=== PATIENT | male | born 1995 | race Caucasian/White ===

== ENCOUNTER 2017-02-02 16:56 | Emergency (ER) | payer OTHER ==
[~2017-02-02] VITALS: Ht 177.8 cm; Wt 75.2 kg
[2017-02-02 17:01] VITALS: TEMP 37; Ht 177.8 cm; Wt 75.2 kg
--- NOTE | 2017-02-02 18:24 | EMERGENCY ROOM VISIT NOTE ---
History First contact with patient: 17:59 Chief Complaint: RESPIRATORY PROBLEMS Stated Complaint: CHRONIC BRONCHITIS Nursing Triage Summary: "I've been having horrible bronchitis for 2-3 months, i've been to multiple doctors and don't feel any better. I have tried many medications. My doctor told me that I need to just come to the hospital." Symptoms include coughing, chest pain, throat pain, congestion, and I can't sleep because I am coughing so much. History of Present Illness The patient is a 21 year old male who presents to the Emergency Room with complaints of a chronic cough that has been going on for 2-3 months. The cough is nonproductive. He also describes chest pain particularly when he is coughing. He denies any shortness of breath. No fever or chills. He is also complaining of throat pain from coughing. The patient has seen numerous doctors. He has been told that he has chronic bronchitis. He is been given a few cough syrups that have helped. He has been seen at [facility] urgent care. He is a student. He denies any new environmental factors. Review of Systems 10 system review performed and negative unless noted in HPI or below Past Medical/Surgical History Otherwise healthy Family History No reported family history Social History Smoking Status: Never Smoker Housing Status: lives with family Occupation Status: [employer] student Current/Historical Medications Scheduled Albuterol Hfa (Ventolin Hfa), 2 PUFFS INH QID Scheduled PRN Hydrocodone W/ Homatropine (Hycodan 5/1.5MG 5 Ml), 5-10 ML PO Q4H PRN for Cough Physical Exam Vital Signs Date Time Temp Pulse Resp B/P (MAP) Pulse Ox O2 Delivery O2 Flow Rate FiO2 02/02/17 19:25 64 16 126/62 97 Room Air 02/02/17 17:01 97 Room Air 02/02/17 17:01 37.0 111 18 145/75 99 Room Air Physical Exam VITALS: Vitals are noted on the nurse's note and reviewed by myself. Vital signs stable. GENERAL: 21-year-old male, in no acute distress, nondiaphoretic, well-developed well-nourished. SKIN: The skin was without rashes, erythema, edema, or bruising. HEAD: Normocephalic atraumatic. MOUTH: Mucous membranes moist. Tonsils are not enlarged. Pharynx without erythema or exudate. Uvula midline. Airway patent. Tongue does not deviate. NECK: Supple without nuchal rigidity. No lymphadenopathy. Cervical spine is nontender. No JVD. HEART: Regular rate and rhythm without murmurs gallops or rubs. LUNGS: Clear to auscultation bilaterally without wheezes, rales or rhonchi. No accessory muscle use. MUSCULOSKELETAL: No muscle atrophy, erythema, or edema noted. Strength 5/5 throughout. NEURO: Patient was alert and oriented to person place and time. Normal sensation to touch. No focal neurological deficits. Medical Decision & Procedures ER Provider Diagnostic Interpretation: CT chest IMPRESSION: 1. Mild bronchial wall thickening could suggest bronchitis/bronchiolitis. No focal infiltrate to suggest pneumonia. Laboratory Results 02/02/17 18:20 Red Blood Count 5.19, Mean Corpuscular Volume 85.5, Mean Corpuscular Hemoglobin 30.6, Mean Corpuscular Hemoglobin Concent 35.8, Mean Platelet Volume 9.6, Neutrophils (%) (Auto) 52.2, Lymphocytes (%) (Auto) 40.5, Monocytes (%) (Auto) 6.0, Eosinophils (%) (Auto) 0.9, Basophils (%) (Auto) 0.2, Neutrophils # (Auto) 2.97, Lymphocytes # (Auto) 2.30, Monocytes # (Auto) 0.34, Eosinophils # (Auto) 0.05, Basophils # (Auto) 0.01 02/02/17 18:20 Test 02/02/17 18:20 White Blood Count 5.68 K/uL (4.8-10.8) Red Blood Count 5.19 M/uL (4.7-6.1) Hemoglobin 15.9 g/dL (14.0-18.0) Hematocrit 44.4 % (42-52) Mean Corpuscular Volume 85.5 fL (80-100) Mean Corpuscular Hemoglobin 30.6 pg (25-34) Mean Corpuscular Hemoglobin Concent 35.8 g/dl (32-36) Platelet Count 241 K/uL (130-400) Mean Platelet Volume 9.6 fL (7.4-10.4) Neutrophils (%) (Auto) 52.2 % Lymphocytes (%) (Auto) 40.5 % Monocytes (%) (Auto) 6.0 % Eosinophils (%) (Auto) 0.9 % Basophils (%) (Auto) 0.2 % Neutrophils # (Auto) 2.97 K/uL (1.4-6.5) Lymphocytes # (Auto) 2.30 K/uL (1.2-3.4) Monocytes # (Auto) 0.34 K/uL (0.11-0.59) Eosinophils # (Auto) 0.05 K/uL (0-0.5) Basophils # (Auto) 0.01 K/uL (0-0.2) RDW Standard Deviation 41.8 fL (36.4-46.3) RDW Coefficient of Variation 13.4 % (11.5-14.5) Immature Granulocyte % (Auto) 0.2 % Immature Granulocyte # (Auto) 0.01 K/uL (0.00-0.02) Anion Gap 7.0 mmol/L (3-11) Est Creatinine Clear Calc Drug Dose 128.4 ml/min Estimated GFR () 133.8 Estimated GFR (Non- 115.4 BUN/Creatinine Ratio 9.7 (10-20) Calcium Level 8.6 mg/dl (8.5-10.1) Troponin I < 0.015 ng/ml (0-0.045) ECG Indication: chest pain Rate (beats per minute): 76 Rhythm: normal sinus ED Course Patient was seen and examined Vital signs including blood pressure were reviewed medications list was verified with patient Labs were obtained, and a saline lock was established An EKG was reviewed. The patient was put on a monitor. Imaging was performed and reviewed Upon reevaluation, the patient was resting comfortably. We discussed the results of his workup. He voiced understanding. I reviewed discharge instructions the patient. They voiced understanding and had no further questions. Medical Decision Differential diagnosis: Bronchitis, pneumonia, strep pharyngitis, viral pharyngitis, influenza , allergic reaction This patient is a 21-year-old male presents emergency department complaining of a chronic cough and chest pain for 2-3 months. Given the fact that this has been going on for months, I had a low suspicion that this was cardiac related. The patient's EKG shows normal sinus rhythm without any signs of ischemia. His labs are unremarkable. There is no leukocytosis. His vital signs are stable. There is no hypoxia. The patient reports having multiple chest x-rays; therefore, I opted to do a CT of the chest. This was consistent with possible bronchitis/bronchiolitis. The patient was given an albuterol inhaler. He was also given a cough medication. He was instructed to follow-up with a couture dressmaker if his per symptoms persist. He seems happy and comfortable with this plan. This chart was completed in part utilizing [employer] Speech Voice Recognition software. Attempts were made to minimize the grammatical errors, random word insertions, pronoun errors and incomplete sentences. Any formal questions or concerns about the content, text or information contained within the body of this dictation should be directly addressed to the provider for clarification. Medication Reconcilliation Current Medication List: was personally reviewed by me Impression Primary Impression: Chronic bronchitis Departure Information Dispostion Discharge/Transfer to [facility] Condition GOOD Prescriptions Albuterol Hfa (VENTOLIN HFA) 200 Puffs/87093 Mcg Aers 2 PUFFS INH QID, #1 INHALER Prov: Genna Deleon PA-C 02/02/17 Hydrocodone W/ Homatropine (HYCODAN 5/1.5MG 5 ML) 1 Syp Syp 5-10 ML PO Q4H Y for Cough, #200 ML Prov: Genna Deleon PA-C 02/02/17 Referrals No Doctor, Assigned (PCP) Reyes Munoz, DO Patient Instructions Bronchitis Chronic, My [facility] Additional Instructions You were evaluated in the emergency department for a chronic cough and chest pain. A CAT scan shows signs of chronic bronchitis. Please take Hycodan 5 mL's every 4 hours as needed for cough. Do not drink alcohol or drug well taking this medication. It is sedating. If the cough persists, you may need to see a specialist. A number for Dr. Munoz , a couture dressmaker, has been provided. Return to the emergency department if you have any of the following symptoms: -Fever -Shortness of breath -severe chest pain
[2017-02-02 18:50] LABS: BLOOD UREA NITROGEN 9 mg/dl (7-18); BUN/CREATININE RATIO 9.7 (10-20); CALCIUM 8.6 mg/dl (8.5-10.1); CARBON DIOXIDE 27 mmol/L (21-32); CHLORIDE 105 mmol/L (98-107); CREATININE 0.94 mg/dl (0.60-1.40); GLUCOSE 93 mg/dl (70-99); POTASSIUM 3.5 mmol/L (3.5-5.1); SODIUM 139 mmol/L (136-145)
[2017-02-02 18:51] LABS: BASO % 0.2 %; BASO ABS # 0.01 K/uL (0-0.2); COMPLETE YES; EOS % 0.9 %; HEMATOCRIT 44.4 % (42-52); IG% 0.2 %; LYMPH % 40.5 %; MEAN CELL VOLUME 85.5 fL (80-100); MEAN CORPUSCULAR HEMOGLOBIN 30.6 pg (25-34); MEAN CORPUSCULAR HGB CONC 35.8 g/dl (32-36); MEAN PLATELET VOLUME 9.6 fL (7.4-10.4); NEUT % 52.2 %; PLATELET COUNT 241 K/uL (130-400); RED BLOOD COUNT 5.19 M/uL (4.7-6.1); WHITE BLOOD COUNT 5.68 K/uL (4.8-10.8)
--- NOTE | 2017-02-02 18:59 | DIAGNOSTIC IMAGING REPORT ---
(CHEST) THORAX WITHOUT CLINICAL HISTORY: 21 years-old Male presenting with chronic cough, CP. TECHNIQUE: Multidetector CT imaging of the chest was performed without the use of intravenous contrast. IV contrast: None. A dose lowering technique was used consistent with the principles of ALARA (as low as reasonably achievable). COMPARISON: None. CT DOSE (mGy.cm): The estimated cumulative dose is 248.42 mGy.cm. 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 On soft tissue windows, normal thyroid and thoracic inlet. No axillary, supraclavicular, or mediastinal lymphadenopathy. Evaluation of the claudia limited without intravenous contrast. Normal aorta. Normal heart size. No pericardial or pleural effusion. Upper abdomen normal. On lung windows, no focal infiltrate or nodule. Mild bronchial wall thickening noted diffusely. On bone windows, normal osseous structures. IMPRESSION: 1. Mild bronchial wall thickening could suggest bronchitis/bronchiolitis. No focal infiltrate to suggest pneumonia. Electronically signed by: Anirudh Concepcion M.D. 02/02/2017 6:58 PM Dictated Date/Time: 02/02/2017 6:55 PM
[2017-02-02 19:25] VITALS: BP 126/62; PULSE 64; O2SAT 97
[2017-02-02] MEDS ORDERED: HYDR5SYP11 PO (19:31)
[2017-02-02] MEDS ORDERED: VNTHFA/IN INH (19:42)
== END 2017-02-02 19:49 | disposition home or self-care (01) ==
LOC: C.EDB 16:59 → C.EDD 19:49
DX: J42 Unspecified chronic bronchitis (principal)

== ENCOUNTER 2017-04-07 21:33 | Emergency (ER) | payer OTHER ==
[~2017-04-07] VITALS: Ht 177.8 cm; Wt 75.5 kg
[~2017-04-07 21:33] MED LIST: VNTHFA/IN INH
[2017-04-07 21:35] VITALS: TEMP 37; Ht 177.8 cm; Wt 75.5 kg
[2017-04-07] MEDS ORDERED: KETOROLAC TROMETHAMINE 30 MG/ML VIAL IV STA (21:41)
[2017-04-07] MEDS ORDERED: ALBUT/IPRATROP 3MG/0.5MG NEB 3 ML VIAL INH STA (21:41)
[2017-04-07 22:05] VITALS: O2SAT 97
[2017-04-07 22:16] LABS: BASO % 0.2 %; BASO ABS # 0.01 K/uL (0-0.2); COMPLETE YES; HEMATOCRIT 46.3 % (42-52); IG% 0.2 %; LYMPH ABS # 1.37 K/uL (1.2-3.4); MEAN CELL VOLUME 86.1 fL (80-100); MEAN CORPUSCULAR HEMOGLOBIN 31.4 pg (25-34); MEAN CORPUSCULAR HGB CONC 36.5 g/dl (32-36); MEAN PLATELET VOLUME 9.4 fL (7.4-10.4); MONO % 11.4 %; NEUT % 66.2 %; PLATELET COUNT 226 K/uL (130-400); RED BLOOD COUNT 5.38 M/uL (4.7-6.1); WHITE BLOOD COUNT 6.22 K/uL (4.8-10.8)
--- NOTE | 2017-04-07 22:16 | DIAGNOSTIC IMAGING REPORT ---
SINGLE VIEW CHEST CLINICAL HISTORY: Atypical chest pain. FINDINGS: An AP, portable, upright chest radiograph is correlated with chest CT dated 02/02/2017. The cardiomediastinal silhouette is unremarkable. The lungs and pleural spaces are clear. No pneumothorax is seen. The bony thorax is grossly intact. IMPRESSION: No acute cardiopulmonary abnormality. Electronically signed by: Juma Rivera M.D. 04/07/2017 10:15 PM Dictated Date/Time: 04/07/2017 10:14 PM
[2017-04-07 22:19] LABS: POINT OF CARE TROPONIN I < 0.030 ng/ml (0-0.045)
[2017-04-07 22:31] LABS: BUN/CREATININE RATIO 9.5 (10-20); CALCIUM 9.5 mg/dl (8.5-10.1); CREATININE 0.88 mg/dl (0.60-1.40); POTASSIUM 3.2 mmol/L (3.5-5.1)
[2017-04-07] MEDS ORDERED: POTASSIUM CHLORIDE 10 MEQ TABCR PO STA (22:37)
--- NOTE | 2017-04-07 22:46 | EMERGENCY ROOM VISIT NOTE ---
History First contact with patient: 21:39 Chief Complaint: RESPIRATORY PROBLEMS Stated Complaint: COLLAPSED LUNG R KIDNEY STONES Nursing Triage Summary: Patient states he was walking home lsat night in the cold when he developoed right sided rib/lung pain. The pain increases upon deep inspiration and now has spread across to areas of both lungs. Patient was treated here previously for a cough and the symptoms have not completely resolved. History of Present Illness The patient is a 21 year old male who presents to the Emergency Room with complaints of right-sided chest pain or source of breath for the past day that started while walking home. Pain currently 5 out of 10 worse with breathing and better with rest. It does not radiate. Patient has had a chronic cough. He does not smoke. He has traveled recently. No family history of heart disease or blood clots. Patient denies fever, chills, productive cough, abdominal pain, back pain, leg pain or swelling. No injury to the area. No prior history of heart disease or blood clots. No IV drug abuse. Review of Systems See HPI for pertinent positives & negatives. A total of 10 systems reviewed and were otherwise negative. Past Medical/Surgical History none Social History Smoking Status: Former Smoker Drug Use: none Housing Status: lives with family Occupation Status: [employer] student Current/Historical Medications Scheduled Albuterol Hfa (Ventolin Hfa), 2 PUFFS INH QID Physical Exam Vital Signs Date Time Temp Pulse Resp B/P (MAP) Pulse Ox O2 Delivery O2 Flow Rate FiO2 04/07/17 22:08 88 04/07/17 22:05 97 Room Air 04/07/17 22:05 97 Room Air 04/07/17 21:41 97 Room Air 04/07/17 21:35 37.0 87 16 135/72 96 Room Air Physical Exam VITALS: Vitals are noted on the nurse's note and reviewed by myself. Vital signs stable. GENERAL: Pleasant male, in no acute distress, nondiaphoretic, well-developed well-nourished. SKIN: The skin was without rashes, erythema, edema, or bruising. There is no tenting of the skin. Capillary reflex less than 2 seconds. HEAD: Normocephalic atraumatic. EARS: External auditory canals clear, tympanic membranes pearly king without erythema or effusion bilaterally. EYES: Pupils equal round and reactive to light and accommodation. Conjunctivae without injection, sclerae without icterus. Extraocular movements intact. NOSE: Patent, turbinates without inflammation or discharge. MOUTH: Mucous membranes moist. Pharynx without erythema or exudate. Uvula midline. Airway patent. Tongue does not deviate. NECK: Supple without nuchal rigidity. No lymphadenopathy. No thyromegaly. Cervical spine is nontender. No JVD. HEART: Regular rate and rhythm without murmurs gallops or rubs. Chest nontender to palpation LUNGS: Clear to auscultation bilaterally without wheezes, rales or rhonchi. No dullness to percussion. No retractions or accessory muscle use. ABDOMEN: Positive bowel sounds x 4. Normal tympanic percussion. Soft, nontender, without masses or organomegaly. Hernandez sign negative. No guarding or rebound tenderness. MUSCULOSKELETAL: No muscle atrophy, erythema, or edema noted. NEURO: Patient was alert and oriented to person place and time. Normal sensation to light and sharp touch. No focal neurological deficits. Medical Decision & Procedures Laboratory Results 04/07/17 21:55 Red Blood Count 5.38, Mean Corpuscular Volume 86.1, Mean Corpuscular Hemoglobin 31.4, Mean Corpuscular Hemoglobin Concent 36.5, Mean Platelet Volume 9.4, Neutrophils (%) (Auto) 66.2, Lymphocytes (%) (Auto) 22.0, Monocytes (%) (Auto) 11.4, Eosinophils (%) (Auto) 0.0, Basophils (%) (Auto) 0.2, Neutrophils # (Auto ) 4.12, Lymphocytes # (Auto) 1.37, Monocytes # (Auto) 0.71, Eosinophils # (Auto ) 0.00, Basophils # (Auto) 0.01 04/07/17 21:55 Test 04/07/17 21:55 04/07/17 21:59 White Blood Count 6.22 K/uL (4.8-10.8) Red Blood Count 5.38 M/uL (4.7-6.1) Hemoglobin 16.9 g/dL (14.0-18.0) Hematocrit 46.3 % (42-52) Mean Corpuscular Volume 86.1 fL (80-100) Mean Corpuscular Hemoglobin 31.4 pg (25-34) Mean Corpuscular Hemoglobin Concent 36.5 g/dl (32-36) Platelet Count 226 K/uL (130-400) Mean Platelet Volume 9.4 fL (7.4-10.4) Neutrophils (%) (Auto) 66.2 % Lymphocytes (%) (Auto) 22.0 % Monocytes (%) (Auto) 11.4 % Eosinophils (%) (Auto) 0.0 % Basophils (%) (Auto) 0.2 % Neutrophils # (Auto) 4.12 K/uL (1.4-6.5) Lymphocytes # (Auto) 1.37 K/uL (1.2-3.4) Monocytes # (Auto) 0.71 K/uL (0.11-0.59) Eosinophils # (Auto) 0.00 K/uL (0-0.5) Basophils # (Auto) 0.01 K/uL (0-0.2) RDW Standard Deviation 41.0 fL (36.4-46.3) RDW Coefficient of Variation 13.0 % (11.5-14.5) Immature Granulocyte % (Auto) 0.2 % Immature Granulocyte # (Auto) 0.01 K/uL (0.00-0.02) Anion Gap 9.0 mmol/L (3-11) Est Creatinine Clear Calc Drug Dose 137.1 ml/min Estimated GFR () 142.3 Estimated GFR (Non- 122.8 BUN/Creatinine Ratio 9.5 (10-20) Calcium Level 9.5 mg/dl (8.5-10.1) Total Bilirubin 0.6 mg/dl (0.2-1) Direct Bilirubin 0.1 mg/dl (0-0.2) Aspartate Amino Transf (AST/SGOT) 12 U/L (15-37) Alanine Aminotransferase (ALT/SGPT) 19 U/L (12-78) Alkaline Phosphatase 83 U/L (45-117) Total Protein 9.2 gm/dl (6.4-8.2) Albumin 4.8 gm/dl (3.4-5.0) Lipase 207 U/L (73-393) Bedside D-Dimer 93 ng/mlFEU (0-450) Bedside Troponin I < 0.030 ng/ml (0-0.045) Medications Administered Medications (Trade) Dose Ordered Sig/Kayleigh Route Start Time Stop Time Status Last Admin Dose Admin Ketorolac Tromethamine (Toradol Inj) 30 mg NOW STAT IV 04/07/17 21:41 04/07/17 21:46 DC 04/07/17 21:55 30 MG Albuterol/ Ipratropium (Duoneb) 3 ml NOW STAT INH 04/07/17 21:41 04/07/17 21:46 DC 04/07/17 21:55 3 ML ED Course Prior records/ancillary studies reviewed. Triage Nursing notes reviewed. The patient's history was concerning for chest pain. Differential diagnosis: Etiologies such as cardiac ischemia, aortic dissection, pulmonary embolism, pneumonia, pneumothorax, musculoskeletal, infections, pericarditis, myocarditis , esophageal rupture, gastrointestinal, as well as others were entertained. Physical examination: As above. ER treatment provided: Toradol On reassessment the patient felt better. Diagnostic interpretation by me: The electrocardiogram was normal sinus, normal intervals, RAD, no acute ST-T wave changes. Impression normal sinus rhythm with RAD interpreted by myself The labs revealed negative d-dimer. Negative troponin. Hypokalemia and this is replaced orally Imaging studies: Chest x-ray SINGLE VIEW CHEST CLINICAL HISTORY: Atypical chest pain. FINDINGS: An AP, portable, upright chest radiograph is correlated with chest CT dated 02/02/2017. The cardiomediastinal silhouette is unremarkable. The lungs and pleural spaces are clear. No pneumothorax is seen. The bony thorax is grossly intact. IMPRESSION: No acute cardiopulmonary abnormality. Electronically signed by: Juma Rivera M.D. Exam and history seem consistent with chest pain most likely from pleurisy from coughing. Patient had a negative d-dimer. EKG showed right axis deviation. Well score was low. No prior history of blood clots or heart disease. No family history of this. He does not smoke. He felt much better after being medicated as above. He was advised to use albuterol as needed for cough and take Motrin for pain. He is advised to follow-up health services in a few days or here in the ER sooner for chest pain, difficulty breathing, fevers, worsening signs or symptoms or as needed. By the evaluation outlined above emergent etiologies such as cardiac ischemia, aortic dissection, pulmonary embolism, pneumonia, pneumothorax, infections, pericarditis, myocarditis, gastrointestinal, as well as others were deemed relatively unlikely. The pt informed about the findings as listed above. All questions were answered and pleased with the treatment. Return instructions were outlined and the patient was discharged in stable condition. Referral: The patient was referred back to [facility] /primary care physician for follow-up in 2 to 3 days for a recheck of the current condition. Case reviewed with my attending Medical Decision As above Medication Reconcilliation Current Medication List: was personally reviewed by me Blood Pressure Screening Patient's blood pressure: Normal blood pressure Impression Primary Impression: Non-cardiac chest pain Additional Impressions: Pleurisy Hypokalemia Departure Information Dispostion Home / Self-Care Condition GOOD Referrals No Doctor, Assigned (PCP) Patient Instructions My [facility] Additional Instructions Albuterol Inhaler: Take 2 puffs four times daily for five days, then as needed. Ibuprofen(Motrin, Advil) may be used for fever or pain. Use 600mg every six hours as needed. Take with food. Avoid using more than 2400mg in a 24 hour period. Do not use 2400mg per day for more than three consecutive days without physician direction. Prolonged inappropriate use can lead to stomach upset or ulcers. (AND/OR) Acetaminophen(Tylenol) may be used for fever or pain. Use 1000mg every six hours as needed. Avoid using more than 3000mg in a 24 hour period. Rest and drink plenty of fluids as tolerated. Continue current medications. Avoid strenuous activities and anything that worsens your pain. Resume normal activities once your symptoms resolve. Return to the ER immediately for worsening or persistent chest pain, abdominal pain, vomiting, fevers, chest pains, difficulty breathing, worsening of your condition, or as needed. Follow up with your primary physician in 2-3 days for a recheck of your current condition. Problem Qualifiers
[2017-04-07 22:54] VITALS: BP 139/80; PULSE 95; O2SAT 97
== END 2017-04-07 23:01 | disposition home or self-care (01) ==
LOC: C.EDB 21:34 → C.EDA 23:01
DX: R07.9 Chest pain, unspecified (principal); R09.1 Pleurisy; E87.6 Hypokalemia; Z87.891 Personal history of nicotine dependence